=== PATIENT | male | born 1990 | race African-American/Black ===

== ENCOUNTER 2024-07-26 22:44 | Emergency (ER) | payer SELFPAY ==
[~2024-07-26] VITALS: Ht 172.7 cm; Wt 68.5 kg
[2024-07-26 23:01] VITALS: O2SAT 98
[2024-07-26] MEDS: MAGNESIUM/ALUMINUM HYDROXIDE/SIMETHICONE 30ML UDC PO ONE (23:58)
[2024-07-27] MEDS: ONDANSETRON HCL 4MG/2ML INJ IV STA (00:10)
[2024-07-27] MEDS: KETOROLAC 30MG/ML VIAL IV STA (00:10)
[2024-07-27] MEDS: SODIUM CHLORIDE 0.9% 1,000 ML IV ONE (00:21)
[2024-07-27 00:32] LABS: BASOPHILS % 0.7 % (0.0-2.0); HEMATOCRIT. 42.2 % (42.0-52.0); LYMPHOCYTES % 36.1 % (20.0-50.0); MEAN CORPUSCULAR HEMOGLOBIN 31.3 pg (28.0-32.0); MEAN CORPUSCULAR HGB CONC 35.5 g/dL (31.0-37.0); MEAN CORPUSCULAR VOLUME 88.1 fL (80.0-94.0); MEAN PLATELET VOLUME 7.7 fl (7.4-10.4); MONOCYTES % 8.4 % (2.0-8.0); NEUTROPHILS % 53.8 % (40.0-76.0); PLATELET 300 x1000/uL (130-400); RED BLOOD CELL COUNT 4.79 mill/uL (4.7-6.1); RED CELL DISTRIBUTION WIDTH 12.7 % (11.6-14.6); WHITE BLOOD COUNT 8.1 x1000/uL (4.5-11.0)
[2024-07-27 00:44] LABS: PROTHROMBIN TIME 10.9 sec (9.6-11.0)
[2024-07-27 00:46] LABS: CHLORIDE 104 mEq/L (98-107); SODIUM 139 mEq/L (136-145)
[2024-07-27 00:47] LABS: CARBON DIOXIDE 27 mEq/L (21-32)
[2024-07-27 00:48] LABS: CALCIUM 9.8 mg/dL (8.7-10.4)
[2024-07-27 00:49] LABS: CLARITY URINE CLEAR (CLEAR); COLOR URINE YELLOW (YELLOW); GLUCOSE URINE NEGATIVE (NEGATIVE); KETONES URINE NEGATIVE (NEGATIVE); LEUKOCYTE ESTERASE URINE NEGATIVE (NEGATIVE); NITRITE URINE NEGATIVE (NEGATIVE); OCCULT BLOOD URINE NEGATIVE (NEGATIVE); PH URINE 7.5 (4.5-8.0); PROTEIN URINE NEGATIVE (NEGATIVE); SPECIFIC GRAVITY URINE 1.013 (1.005-1.030); UROBILINOGEN URINE 0.2 E.U./dL (0.2-1.0)
[2024-07-27 00:52] LABS: CREATININE 1.1 mg/dL (0.6-1.3); GLUCOSE 101 mg/dL (70-105)
[2024-07-27 00:53] LABS: UREA NITROGEN BLOOD 11 mg/dL (9-23)
[2024-07-27 00:54] LABS: ALANINE AMINOTRANSFERASE 29 IU/L (10-49); ASPARTATE AMINOTRANSFERASE 22 IU/L (<34)
[2024-07-27 00:55] LABS: BILIRUBIN DIRECT 0.1 mg/dL (<=3.0); BILIRUBIN TOTAL 0.4 mg/dL (0.1-1.0); PROTEIN TOTAL 7.7 g/dL (6.0-8.3)
[2024-07-27 01:14] VITALS: BP 108/67; PULSE 69; RESP 18; TEMP 36.7; O2SAT 100
[2024-07-27] MEDS ORDERED: ONDA4TAB50 MT (02:23)
[2024-07-27] MEDS ORDERED: ACET-2708 MT (02:23)
[2024-07-27] MEDS ORDERED: IOHEXOL-300 100 ML BOTTLE ONE (06:58)
== END 2024-07-27 03:25 | disposition home or self-care (01) ==
LOC: ER 22:44
DX: R10.13 Epigastric pain (principal); K58.9 Irritable bowel syndrome, unspecified; Z79.899 Other long term (current) drug therapy
CPT/HCPCS: 36415; 99285; 80076; 80048; 81003; 83690; 85025; 85610; 74177; 96361; 96374; 96375; J1885; J2405; Z7610; Q9967; J7030